=== PATIENT | female | born 1965 | race Caucasian/White ===

== ENCOUNTER → 2018-10-22 | Outpatient (CLI) | payer OTHER ==
[~2018-10-22] MED LIST: LEVO25TA55 PO; LORA0.5T96 PO
--- NOTE | 2018-10-22 17:59 | KCIC ---
Bilateral digital screening mammograms: Reason for examination: Routine screening. Comparison is made to previous studies dated 10/31/2013 and 09/21/2012. Interpretation was made with the benefit of CAD. The skin and nipples show no abnormalities. No abnormal axillary lymph nodes are seen. The breast parenchyma shows scattered fibroglandular density. (Breast density: Category B.) There are no dominant masses, suspicious calcifications or architectural distortions. Impression: No evidence of malignancy. Recommend routine screening. BI-RADS Category 1: Negative. "Our facility is accredited by the [employer] Mammography Program." This patient's information has been entered into a reminder system for the patient to be notified with the results of her examination and a target date for the next mammogram. Electronically signed by: Debora Farrell MD (10/22/2018 5:56 PM) [id number]
== END | disposition home or self-care (01) ==
LOC: KCIC MAMMO 16:27
PROVIDERS: ATTEND Internal Medicine
DX: Z12.31 Encounter for screening mammogram for malignant neoplasm of breast (principal)
CPT/HCPCS: 77067

== ENCOUNTER → 2019-02-07 | Outpatient (CLI) | payer OTHER ==
--- NOTE | 2019-02-07 16:12 | KCIC ---
EXAM: Cervical spine, 4 views. HISTORY: Pain. COMPARISON: 06/07/2013. FINDINGS: 4 views of the cervical spine are obtained. There is instrumented anterior spinal fusion and interbody fusion at C5-C6. There is degenerative endplate remodeling primarily at C6-C7. There is multilevel facet arthropathy. IMPRESSION: 1. Instrumented fusion at C5-C6. 2. Degenerative change primarily at C6-C7. Electronically signed by: Loreto Kan MD (02/07/2019 4:09 PM) [place] [id number]
== END | disposition home or self-care (01) ==
LOC: KCIC 15:44
PROVIDERS: ATTEND Internal Medicine
DX: M47.812 Spondylosis without myelopathy or radiculopathy, cervical region (principal); M12.88 Other specific arthropathies, not elsewhere classified, other specified site
CPT/HCPCS: 72040

== ENCOUNTER → 2019-02-21 | Outpatient (CLI) | payer OTHER ==
--- NOTE | 2019-02-22 08:41 | KCIC ---
MRI of the cervical spine without contrast 02/21/2019 CLINICAL HISTORY: Neck pain with bilateral shoulder pain. History of cervical fusion. TECHNIQUE: Unenhanced T1-weighted, T2-weighted and inversion recovery sagittal and gradient echo and T2-weighted axial images of the cervical spine were obtained. FINDINGS: Comparison is made to radiographs of the cervical spine dated 02/07/2019. Minimal lateral curvature of the cervical spine is seen convex to the left. There is straightening of the normal cervical lordosis. The patient is post anterior discectomy and fusion using an anterior plate, bone screws and bone graft material at C5-6. Degenerative signal changes are seen involving the remaining discs of the cervical spine. Loss of height of the C4-5 and C6-7 discs is noted. Degenerative signal changes are seen within the marrow surrounding these tasks. No area of abnormal signal intensity is seen involving the cervical spinal cord. At the C2-3, C3-4 and C4-5 disc spaces there are minimal to mild generalized disc bulges. Degenerative changes are seen involving the uncovertebral and facet joints bilaterally. These findings do not result in significant central spinal canal or neural foraminal stenosis. At the C5-6 level degenerative changes are seen involving the uncovertebral and facet joints. These findings do not result in definite areas of significant central spinal canal or neural foraminal stenosis. At the C6-7 disc space there is a mild to moderate generalized disc bulge. Degenerative changes are seen involving the uncovertebral and facet joints bilaterally. These findings efface the anterior CSF resulting in mild central spinal canal stenosis without evidence of cord impingement. No neural foraminal stenosis is seen. At the C7-T1 disc space there is a minimal generalized disc bulge. Degenerative changes involving the facet joints bilaterally. These findings do not result in significant central spinal canal or neural foraminal stenosis. IMPRESSION: 1. Post anterior discectomy and fusion at C5-6. 2. Degenerative changes are seen throughout the cervical spine. These findings result in mild central spinal canal stenosis without evidence of cord impingement at C6-7. Electronically signed by: Manjinder Montes MD (02/22/2019 8:39 AM) [facility]
== END | disposition home or self-care (01) ==
LOC: KCIC MRI 15:10
PROVIDERS: ATTEND Internal Medicine
DX: M47.812 Spondylosis without myelopathy or radiculopathy, cervical region (principal); M48.02 Spinal stenosis, cervical region; Z90.89 Acquired absence of other organs; Z98.890 Other specified postprocedural states
CPT/HCPCS: 72141

== ENCOUNTER → 2019-04-15 | Outpatient (CLI) | payer OTHER ==
[~2019-04-15] MED LIST changes: +AMLO5TAB4 PO; +AZIL80TA PO; +METF500T16 PO
--- NOTE | 2019-04-16 01:28 | PAIN ---
DATE OF SERVICE: 04/15/2019 INITIAL CONSULTATION FOR PAIN CLINIC CHIEF COMPLAINT: Neck and right upper extremity pain. HISTORY OF PRESENT ILLNESS: This is a 54-year-old female who presents with history of pain in the base of the neck and right upper extremity, mostly in the shoulder and in the right arm, worse with standing, changing positions, using her right upper extremity in repetitive fashion, driving a car with her right arm, doing writing initially and mostly using her computer, doing a mouse work as well as typing, which she does most of her working day. The patient reports at the end of the day, it is aggravated, increased in pain, radiating in the base of the neck and the right shoulder posteriorly, some on the left, but mostly in the right side into the right arm, mostly in the posterior deltoid and upper triceps. The patient reports it is constant, sharp, stabbing, throbbing, shooting, changes during the day, worse with activity, once again, aching and burning in the base of the neck as well. The patient has had a recent MRI scan of cervical spine ordered by her neurosurgeon showing post anterior diskectomy and fusion at C5-C6 with degenerative changes throughout the cervical spine, C5-C6 showing degenerative changes without any significant stenosis. C6-C7 shows [id number] generalized disk bulge effacing the anterior CSF resulting in mild central spinal canal stenosis without evidence of cord impingement. C7-T1 shows generalized disk bulge as well without significant stenosis. T2-T3, T3-T4, and T4-T5 show minimal to mild generalized disk bulges as well. The patient rates her disability rating from 0-10, 10 being the worst, is a 5 with family home responsibilities, recreation, social activity, occupation and sexual behavior, 0 with self-care and life support activities. The patient reports it does not awaken her from sleep at night, does not affect her bowel or bladder control or ability to walk. She tried Motrin. She is also doing stretching and strengthening exercises on her own, which seems to be mildly helpful in keeping the arms mobile. The patient reports it is worse with reaching above her head with her right arm and again with working, typing and using a computer mouse much more painful and with more radicular quality of pain in the right arm with the repetitive use. The patient has not had any chiropractic treatment or other modalities at this time. PAST MEDICAL HISTORY: Significant for type 2 diabetes, hypothyroidism, hypertension, and arthritis. PAST SURGICAL HISTORY: Previous surgeries include gastric bypass in 2012, thyroidectomy, hysterectomy, cholecystectomy and a cervical diskectomy in 2015. CURRENT MEDICATIONS: Include metformin, Norvasc, lorazepam, Synthroid, and azilsartan. ALLERGIES: The patient has no known drug allergies. FAMILY HISTORY: Significant for cancers and hypertension. SOCIAL HISTORY: The patient does not smoke, drinks about a 12 pack of alcohol weekly, does not use any illegal, illicit or recreational drugs. 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 REVIEW OF SYSTEMS: Review of systems is positive for those items mentioned in history of present illness. All systems reviewed and otherwise negative. It is complete, full and well documented on the patient's chart. PHYSICAL EXAMINATION: VITAL SIGNS: The patient's blood pressure is 159/94, pulse 91, respirations are 18, temperature is 98.2 degrees Fahrenheit, height is 5 feet 9 inches, and weighs 223 pounds. GENERAL: The patient is awake, alert, oriented, appropriate, very pleasant demeanor. HEENT: Head shows normocephalic, atraumatic. Extraocular movements are intact and symmetrical. Oral cavity: Mucous membranes moist and pink. Dentition is intact. NECK: Shows anterior throat supple without palpable lymphadenopathy noted. Swallow reflex symmetrical. CHEST: Shows normal on inspection. Breath sounds are clear bilaterally. HEART: Shows S1, S2 clear. No murmurs auscultated. ABDOMEN: Soft, nontender, nondistended. No palpable organomegaly is noted. No rebound or guarding demonstrated. BACK: Shows spine grossly in the midline, normal-appearing cervical lordotic curvature, thoracic kyphotic curvature and lumbar lordotic curvature. Cervical paraspinous muscle shows symmetrical on inspection, with palpation shows some moderate tenderness, but only diffusely in the middle and lower distribution of the cervical paraspinous musculature, slightly more on the right than the left, also some mild tenderness with palpation of the right superior medial and lateral trapezius and some over the superior aspect of the suprascapular region, but not the infrascapular on the right. Left side is nontender. The patient shows good rotational motion of cervical spine with increased pain with far left lateral rotation with pulling sensation and pain in the right base of the neck and shoulder with full rotation greater than 45 degrees right and left as well as full extension, full forward flexion without significant increase in pain. The patient's upper extremities show deep tendon reflexes at 2+ in the biceps and triceps tendons. Motor exam is strong with mechanical tech strength rated at 5/5 as is biceps and triceps flexion and symmetrical with pain reported with resistance on the right side only with biceps flexion. Peripheral pulses are 2+ in radial distribution. No peripheral edema is noted bilaterally. Upper extremities are warm and dry to touch, equal in color and appearance. Shoulder shrug is strong and intact without loss of strength on resistance, but again with pain radiating to the right shoulder and deltoid posteriorly into the triceps with resistance on the right side only, not the left. This is true with abduction of shoulder to 90 degrees as well, but without loss of strength on resistance as well. The patient's skin shows warm and dry, good turgor. No edema. No sores, rashes or bruising throughout. IMPRESSION: 1. This is a 54-year-old female with approximate 2-month history of increasing pain, base of the neck, right upper extremity in a radicular fashion following the C6-C7 dermatomal distribution. 2. MRI scan of cervical spine as noted. 3. Type 2 diabetes. 4. Hypertension. 5. Arthritis. PLAN: Options were discussed with the patient including conservative medical managements, physical therapies and interventional techniques. She would like to pursue interventional techniques. We discussed a cervical epidural steroid injection using description as well as anatomical models to describe the procedure as she has already done physical therapies and is doing exercises, stretching, strengthening on her own. We will wait for preauthorization with her insurance provider for a C6-C7 cervical epidural steroid injection in translaminar approach for her C6-C7 right-sided cervical radiculopathy. In the meantime, we will try Medrol Dosepak. The patient was given instruction as well as side effects to be aware of with the medication and the patient will follow up after the Medrol Dosepak and after preauthorization is obtained. RIK LANDEROS MD DR: KURT/osman JOB#: [id number] / [id number] NATALI Steinberg MD
== END | disposition home or self-care (01) ==
LOC: PNCL 14:00
PROVIDERS: ATTEND Anesthesiology
DX: M79.601 Pain in right arm (principal); M54.2 Cervicalgia; E11.9 Type 2 diabetes mellitus without complications; E03.9 Hypothyroidism, unspecified; I10 Essential (primary) hypertension; M19.90 Unspecified osteoarthritis, unspecified site; Z90.49 Acquired absence of other specified parts of digestive tract; Z90.710 Acquired absence of both cervix and uterus; Z90.89 Acquired absence of other organs
CPT/HCPCS: G0463

== ENCOUNTER → 2019-06-20 | Outpatient (CLI) | payer OTHER ==
--- NOTE | 2019-06-20 10:53 | KCIC ---
LUMBAR SPINE 2-3V History: Low back pain with right sciatica for one month, worsening pain the last 2 weeks Comparison: None. Findings: 3 views of the lumbar spine are submitted. There is mild levoscoliosis centered about the mid lumbar spine. There has been cholecystectomy. Lumbar vertebral body stature is overall maintained. There is very minimal posterior subluxation L2 relative L3. There is facet degenerative change greater inferiorly of the lumbar spine. There is mild narrowing of the L5-S1, L3-4, and L2-3 intervertebral disc spaces, spondylosis greatest at L2-3 and L3-4. Impression: 1. There is mild degenerative disc disease greatest L2-3, L3-4, and L5-S1. There is spondylosis greatest at L2-3 and L3-4. 2. There is mild lumbar levoscoliosis. Electronically signed by: Brody Chavez MD (06/20/2019 10:50 AM) [facility] [place]
== END | disposition home or self-care (01) ==
LOC: KCIC 10:15
PROVIDERS: ATTEND Internal Medicine
DX: S33.120A Subluxation of L2/L3 lumbar vertebra, initial encounter (principal); M47.816 Spondylosis without myelopathy or radiculopathy, lumbar region; M48.07 Spinal stenosis, lumbosacral region; M41.86 Other forms of scoliosis, lumbar region; X58.XXXA Exposure to other specified factors, initial encounter; Y93.89 Activity, other specified; Y92.89 Other specified places as the place of occurrence of the external cause; Y99.8 Other external cause status
CPT/HCPCS: 72100

== ENCOUNTER → 2019-07-03 | Outpatient (CLI) | payer OTHER ==
--- NOTE | 2019-07-03 13:00 | KCIC ---
EXAM: MRI Lumbar Spine without IV contrast INDICATION: Lumbar radiculopathy. New-onset low back pain into the right lower extremity for the past 4 weeks.. TECHNIQUE: Sagittal T1-w, T2-w, and STIR images, and axial T1-w and T2-w images of the lumbar spine. COMPARISON: L-spine x-rays of June 20, 2019 FINDINGS: The lowest fully formed disc is referred to as the L5-S1 level. ALIGNMENT: Mild lumbar levoscoliosis is again evident. OSSEOUS: No evidence of fracture or bone destruction. Marrow signal is within normal limits. CONUS MEDULLARIS & CAUDA EQUINA: The conus medullaris is in normal position. The conus medullaris and cauda equina are intrinsically normal. SOFT TISSUES: Unremarkable. DISC LEVELS: T12-L1: Unremarkable. L1-L2: Unremarkable. L2-L3: Disc desiccation and mild diffuse bulge. Central canal AP diameter measures 13 mm. L3-L4: Mild diffuse disc bulge asymmetric to the left results in mild narrowing of the bilateral lateral recesses. Central canal AP diameter is also slightly narrowed to 9 mm. L4-L5: Superimposed on diffuse disc bulge with loss of height and generalized desiccation is a right-sided disc extrusion extending caudally from the right-sided L4-L5 discs ventral epidural space. This results in severe narrowing of the right lateral recess, moderate narrowing of the central canal with abutment against the descending right L5 nerve root. Mild bilateral foraminal narrowing of moderate central canal narrowing. Central canal AP diameter measures 6 mm. L5-S1: Diffuse disc desiccation and mild loss of height. Broad posterior disc protrusion. Mild to moderate bilateral left greater than right foraminal narrowing. There is facet hypertrophic change at this level that does not significantly contribute to spinal stenosis. IMPRESSION: Relatively mild multilevel lumbar spinal degenerative spondylosis but with notable right-sided disc extrusion abutting the descending right L5 nerve root at the L4-L5 level. Correlate clinically for relevance to patient's right-sided lower extremity pain. No fracture, malalignment or aggressive appearing osseous lesions. Electronically signed by: Kendal Frederick MD (07/03/2019 12:58 PM) [id number]
== END | disposition home or self-care (01) ==
LOC: KCIC MRI 12:01
PROVIDERS: ATTEND Internal Medicine
DX: M47.26 Other spondylosis with radiculopathy, lumbar region (principal); M51.16 Intervertebral disc disorders with radiculopathy, lumbar region; M53.3 Sacrococcygeal disorders, not elsewhere classified; M48.07 Spinal stenosis, lumbosacral region; M89.38 Hypertrophy of bone, other site
CPT/HCPCS: 72148

== ENCOUNTER → 2021-04-29 | Outpatient (CLI) | payer OTHER ==
--- NOTE | 2021-04-29 16:07 | KCIC ---
EXAM: Right elbow sonogram. HISTORY: Palpable lump. TECHNIQUE: Sonographic imaging of the right elbow was performed. COMPARISON: None. FINDINGS: There is no suspicious sonographic finding at the site of reported palpable concern along t he elbow soft tissues. IMPRESSION: No suspicious sonographic finding. Cross-sectional imaging can be performed if there is c oncern for sonographically occult lesion. Electronically signed by: Loreto Kan MD (04/29/2021 4:05 PM) [id number]
== END ==
LOC: KCIC US 15:10
PROVIDERS: ATTEND Physician Assistant Surgical
DX: R22.31 Localized swelling, mass and lump, right upper limb (principal)
CPT/HCPCS: 76881